=== PATIENT | male | born 2005 | race Caucasian/White ===

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

== ENCOUNTER → 2024-08-19 17:15 | Outpatient (CLI) | payer OTHER, SELFPAY ==
--- NOTE | 2024-08-19 17:18 | DI.RAD.S_ITS ---
PROCEDURE: XR TIBIA FUBULA RT 2V INDICATIONS: ski accident this am- pain swelling mid tibia TECHNIQUE: 2 views of the tibia and fibula were acquired. COMPARISON: None. FINDINGS: Bones: There is no acute displaced fracture. No dislocation. Possible small eccentric sclerosis , possibly bone island in the distal fibula. Soft tissues: No suspicious calcifications. IMPRESSION: No acute displaced osseous abnormality. If there is high concern, consider CT or MRI to evaluate for nondisplaced or stress injury Dictated by: Raza Friedman M.D. on 08/19/2024 at 17:41 Approved by: Raza Friedman M.D. on 08/19/2024 at 17:43
== END ==
PROVIDERS: PCP Registered Nurse Diabetes Educator; Referring Provider Physician Assistant; Visit Provider Physician Assistant
DX: S89.91XA Unspecified injury of right lower leg, initial encounter (principal); Y93.23 Activity, snow (alpine) (downhill) skiing, snowboarding, sledding, tobogganing and snow tubing
CPT/HCPCS: 73590